=== PATIENT | male | born 1955 | race Caucasian/White ===

== ENCOUNTER 2016-12-22 06:59 | Day surgery (SDC) | payer BC ==
[2016-12-21 11:10] VITALS: BMI 19.1
[2016-12-22] MEDS ORDERED: PROPOFOL 40 ML ONE (07:57)
[2016-12-22] MEDS ORDERED: LIDOCAINE HCL/PF 2% SDV 5ML VIAL ONE (07:57)
[2016-12-22 08:38] VITALS: TEMP 97.7
[2016-12-22 11:17] VITALS: BP 121/82; PULSE 65
--- NOTE | 2016-12-25 12:06 | PATH ---
Surgical Pathology Report Patient Name: SULMA NGUYỄN JR [facility]. Rec. #: [id number] /Age/Gender: 1955 (Age: 61) / M Account: [id number] Location: U-ENDOSCOPY Taken: 12/22/2016 Received: 12/22/2016 Reported: 12/25/2016 Physicians: Cuate Farnsworth M.D. Specimen(s) Received A: BX ILEUM B: BX ANASTOMOSIS C: BX TRANSVERSE COLON D: SPLENIC FLEXURE BIOPSY E: BX SIGMOID F: BX RECTUM Clinical History Crohn's surveillance Crohn's colitis, ileitis Final Diagnosis A. ILEUM, BIOPSY: ILEUM MUCOSA WITH FOCALLY ACTIVE CHRONIC ILEITIS WITH FOCAL MILD CRYPT ALTERATION. NO EVIDENCE OF GRANULOMATA OR DYSPLASIA. B. ANASTOMOSIS SITE, BIOPSY: COLONIC MUCOSA WITH MILD ARCHITECTURAL DISARRAY AND FOCAL REACTIVE LYMPHOID AGGREGATE CONSISTENT WITH ANASTOMOSIS SITE. NO EVIDENCE OF GRANULOMATA, DYSPLASIA/ADENOMA OR CARCINOMA. C. COLON, TRANSVERSE, BIOPSY: COLONIC MUCOSA WITH MILD CRYPT ALTERATION. NO EVIDENCE OF ACTIVE INFLAMMATION, GRANULOMATA WITH DYSPLASIA. D. COLON, SPLENIC FLEXURE, BIOPSY: COLONIC MUCOSA WITH FOCALLY ACTIVE MILD CHRONIC COLITIS WITH FOCAL MILD CRYPT ALTERATION. NO EVIDENCE OF GRANULOMATA OR DYSPLASIA. E. COLON, SIGMOID, BIOPSY: COLONIC MUCOSA WITH FOCALLY ACTIVE MILD CHRONIC COLITIS WITH FOCAL MILD CRYPT ALTERATION. NO EVIDENCE OF GRANULOMATA OR DYSPLASIA F. RECTUM, BIOPSY: COLONIC MUCOSA WITH FOCALLY MINIMALLY ACTIVE MILD CHRONIC PROCTITIS WITH FOCAL MILD CRYPT ALTERATION. NO EVIDENCE OF GRANULOMATA OR DYSPLASIA. Comment: History of Crohn's disease noted. The histologic findings are compatible with idiopathic bowel disease. Electronically Signed Sukhjinder Vee M.D. Gross Description A. The specimen is received in formalin labeled biopsy ileum are three fragments of dacosta-pink tissue ranging in size from 0.1 0.3 cm in greatest dimension. Entirely submitted in one cassette. B. The specimen is received in formalin labeled biopsy anastomosis are multiple fragments of dacosta-pink tissue ranging in size from 0.1 0.2 cm in greatest dimension. Entirely submitted in one cassette. C. The specimen is received in formalin labeled biopsy transverse colon is a fragment of dacosta-pink tissue measuring 0.3 cm. in greatest dimension. Entirely submitted in one cassettes. D. The specimen is received in formalin labeled biopsy sigmoid are four fragments of dacosta-pink tissue ranging in size from 0.2 0.4 cm in greatest dimension. Entirely submitted in one cassettes. E. The specimen is received in formalin labeled biopsy rectum are four fragments of dacosta-pink tissue ranging in size from 0.1 0.2 cm in greatest dimension. (AF) [facility]/12/22/2016
== END 2016-12-22 09:30 | disposition home or self-care (01) ==
LOC: JASU-ENDO 06:59
PROVIDERS: ATTEND Internal Medicine Gastroenterology
PROC: 0DBB8ZX Excision of Ileum, Via Natural or Artificial Opening Endoscopic, Diagnostic (ICD-10-PCS; principal; 2016-12-22 08:00)
DX: Z12.11 Encounter for screening for malignant neoplasm of colon (principal); K50.10 Crohn's disease of large intestine without complications; Z98.0 Intestinal bypass and anastomosis status; K56.69 Other intestinal obstruction; K63.3 Ulcer of intestine
CPT/HCPCS: 88305-TC

== ENCOUNTER 2017-12-28 07:17 | Day surgery (SDC) | payer BC ==
[2017-12-27 09:49] VITALS: BMI 18.7
[2017-12-28] MEDS ORDERED: LIDOCAINE HCL/PF 2% SDV 5ML VIAL ONE (07:58)
[2017-12-28] MEDS ORDERED: PROPOFOL 20 ML ONE ×4 (07:59)
[2017-12-28 08:44] VITALS: TEMP 97.8
[2017-12-28 10:57] VITALS: BP 121/65; PULSE 56
--- NOTE | 2017-12-31 10:47 | PATH ---
Surgical Pathology Report Patient Name: SULMA NGUYỄN JR [facility]. Rec. #: [id number] /Age/Gender: 1955 (Age: 62) / M Account: [id number] Location: ASU-ENDOSCOPY Taken: 12/28/2017 Received: 12/28/2017 Reported: 12/31/2017 Physicians: Cuate Farnsworth M.D. Specimen(s) Received A: BX TERMINAL ILEUM B: BX ANASTOMOSIS C: BX TRANSVERSE COLON D: BX DESCENDING COLON E: BX SIGMOID F: BX RECTUM Clinical History Preoperative diagnosis: Crohn's disease surveillance Postoperative diagnosis: Crohn's ileitis with stricture Final Diagnosis A. TERMINAL ILEUM, BIOPSY: SMALL INTESTINAL MUCOSA WITH NONSPECIFIC ACTIVE INFLAMMATION. NO ARCHITECTURAL DISTORTION, GRANULOMA, OR DYSPLASIA IDENTIFIED. B. COLON, ANASTOMOSIS, BIOPSY: COLONIC AND SMALL INTESTINAL MUCOSA WITH HYPERPLASIA OF MUCOSA ASSOCIATED LYMPHOID TISSUE. NO ACTIVE INFLAMMATION, ARCHITECTURAL DISTORTION, GRANULOMAS, OR DYSPLASIA IDENTIFIED. C. COLON, TRANSVERSE, BIOPSY: COLONIC MUCOSA WITH NO PATHOLOGIC CHANGES. NO ACTIVE COLITIS, ARCHITECTURAL DISTORTION, GRANULOMATA, OR DYSPLASIA IDENTIFIED. NO MICROSCOPIC COLITIS IDENTIFIED (NO LYMPHOCYTIC OR COLLAGENOUS COLITIS IDENTIFIED). D. COLON, DESCENDING, BIOPSY: COLONIC MUCOSA WITH NO PATHOLOGIC CHANGES. NO ACTIVE COLITIS, ARCHITECTURAL DISTORTION, GRANULOMATA, OR DYSPLASIA IDENTIFIED. NO MICROSCOPIC COLITIS IDENTIFIED (NO LYMPHOCYTIC OR COLLAGENOUS COLITIS IDENTIFIED). E. COLON, SIGMOID, BIOPSY: COLONIC MUCOSA WITH MILD HYPERPLASTIC CHANGES. NO ACTIVE COLITIS, CRYPT ARCHITECTURAL DISTORTION, GRANULOMATA, OR DYSPLASIA IDENTIFIED. NO MICROSCOPIC COLITIS IDENTIFIED (NO LYMPHOCYTIC OR COLLAGENOUS COLITIS IDENTIFIED). F. COLON, RECTUM, BIOPSY: COLONIC MUCOSA WITH MILD HYPERPLASTIC CHANGES. NO ACTIVE COLITIS, CRYPT ARCHITECTURAL DISTORTION, GRANULOMATA, OR DYSPLASIA IDENTIFIED. NO MICROSCOPIC COLITIS IDENTIFIED (NO LYMPHOCYTIC OR COLLAGENOUS COLITIS IDENTIFIED). Electronically Signed Jeremie Cheney M.D. Gross Description A. Received in formalin, labeled "biopsy terminal ileum" are 3 dacosta, irregular portions of soft tissue ranging from 0.2-0.3 cm. in greatest dimension. The specimens are submitted in toto in one cassette. B. Received in formalin, labeled "biopsy anastomosis" are 4 dacosta, irregular portions of soft tissue ranging from 0.2-0.4 cm. in greatest dimension. The specimens are submitted in toto in one cassette. C. Received in formalin, labeled "biopsy transverse colon" are 5 dacosta, irregular portions of soft tissue ranging from 0.2-0.4 cm. in greatest dimension. The specimens are submitted in toto in one cassette. D. Received in formalin, labeled "biopsy descending colon" are 4 dacosta, irregular portions of soft tissue ranging from 0.2-0.4 cm. in greatest dimension. The specimens are submitted in toto in one cassette. E. Received in formalin, labeled "biopsy sigmoid colon" are 2 dacosta, irregular portions of soft tissue averaging 0.3 cm. in greatest dimension. The specimens are submitted in toto in one cassette. F. Received in formalin, labeled "biopsy rectum" are 5 dacosta, irregular portions of soft tissue ranging from 0.2-0.4 cm. in greatest dimension. The specimens are submitted in toto in one cassette. 12/28/2017 [facility]12/28/2017
== END 2017-12-28 10:10 | disposition home or self-care (01) ==
LOC: JASU-ENDO 07:17
PROVIDERS: ATTEND Internal Medicine Gastroenterology
PROC: 0DBB8ZX Excision of Ileum, Via Natural or Artificial Opening Endoscopic, Diagnostic (ICD-10-PCS; principal; 2017-12-28 08:00)
DX: Z12.11 Encounter for screening for malignant neoplasm of colon (principal); K50.90 Crohn's disease, unspecified, without complications
CPT/HCPCS: 88305-TC

== ENCOUNTER 2019-01-10 09:33 | Day surgery (SDC) | payer BC ==
[2019-01-09 12:43] VITALS: BMI 18.0
[2019-01-10 11:31] VITALS: TEMP 97.1
[2019-01-10 12:18] VITALS: BP 122/58; PULSE 62
--- NOTE | 2019-01-13 16:37 | PATH ---
Surgical Pathology Report Patient Name: SULMA NGUYỄN JR [facility]. Rec. #: [id number] /Age/Gender: 1955 (Age: 63) / M Account: [id number] Location: [facility]-ENDOSCOPY Taken: 01/10/2019 Received: 01/10/2019 Reported: 01/13/2019 Physicians: Cuate Farnsworth M.D. Specimen(s) Received A: ANTRAL COLONIC ANASTOMOSIS B: RIGHT COLON C: PROXIMAL TRANSVERSE COLON D: TRANSVERSE COLON E: DESCENDING COLON F: SIGMOID G: RECTUM Clinical History Crohn's Postoperative diagnosis: Polyp active ileitis, anastomotic stricture Final Diagnosis A. ANTRAL COLONIC ANASTOMOSIS, BIOPSY: COLONIC MUCOSA WITH EDEMA, EROSION, AND ACTIVE CHRONIC INFLAMMATION. B. RIGHT COLON, BIOPSY: COLONIC MUCOSA WITH NO SIGNIFICANT PATHOLOGIC CHANGES. SEE COMMENT. C. PROXIMAL TRANSVERSE COLON POLYP, POLYPECTOMY: TUBULAR ADENOMA. D. TRANSVERSE COLON, BIOPSY: COLONIC MUCOSA WITH REACTIVE LYMPHOID AGGREGATE IN THE LAMINA PROPRIA. E. DESCENDING COLON, BIOPSY: COLONIC MUCOSA WITH NO SIGNIFICANT PATHOLOGIC CHANGES. SEE COMMENT. F. DESCENDING COLON, BIOPSY: COLONIC MUCOSA WITH NO SIGNIFICANT PATHOLOGIC CHANGES. SEE COMMENT. G. RECTUM, BIOPSY: COLONIC MUCOSA WITH NO SIGNIFICANT PATHOLOGIC CHANGES. SEE COMMENT. COMMENT: NO HISTOLOGIC EVIDENCE OF ACTIVE COLITIS. NEGATIVE FOR GRANULOMATOUS INFLAMMATION. NEGATIVE FOR DYSPLASIA. Electronically Signed Kaz Zacarias M.D. Gross Description A. Received in formalin, labeled "biopsy antral colonic anastomosis" are 2 dacosta, irregular portions of soft tissue measuring 0.2 and 0.3 cm. in greatest dimension. The specimens are submitted in toto in one cassette. B. Received in formalin, labeled "biopsy right colon" are 4 dacosta, irregular portions of soft tissue ranging from 0.1-0.4 cm. in greatest dimension. The specimens are submitted in toto in one cassette. C. Received in formalin, labeled "biopsy proximal transverse colon polyp" is a dacosta, irregular portion of soft tissue measuring 0.3 cm. in greatest dimension. The specimen is submitted in toto in one cassette. D. Received in formalin, labeled "biopsy transverse colon" are 3 dacosta, irregular portions of soft tissue ranging from 0.2-0.5 cm. in greatest dimension. The specimens are submitted in toto in one cassette. E. Received in formalin, labeled "biopsy descending colon" are 3 dacosta, irregular portions of soft tissue ranging from 0.4-0.5 cm. in greatest dimension. The specimens are submitted in toto in one cassette. F. Received in formalin, labeled "biopsy sigmoid" are 4 dacosta, irregular portions of soft tissue averaging 0.3 cm. in greatest dimension. The specimens are submitted in toto in one cassette. G. Received in formalin, labeled "biopsy rectum" are 4 dacosta, irregular portions of soft tissue ranging from 0.1-0.8 cm. in greatest dimension. The specimens are submitted in toto in one cassette. 01/10/2019 [facility]/10/2019
== END 2019-01-10 12:25 | disposition home or self-care (01) ==
LOC: JASU-ENDO 09:33
PROVIDERS: ATTEND Internal Medicine Gastroenterology
PROC: 0DBL8ZX Excision of Transverse Colon, Via Natural or Artificial Opening Endoscopic, Diagnostic (ICD-10-PCS; 2019-01-10)
PROC: 0DBB8ZX Excision of Ileum, Via Natural or Artificial Opening Endoscopic, Diagnostic (ICD-10-PCS; principal; 2019-01-10 10:30)
DX: Z12.11 Encounter for screening for malignant neoplasm of colon (principal); K52.89 Other specified noninfective gastroenteritis and colitis; D12.3 Benign neoplasm of transverse colon; Z98.0 Intestinal bypass and anastomosis status
CPT/HCPCS: 88305-TC; 88342-TC

== ENCOUNTER 2020-04-19 07:48 | Day surgery (SDC) | payer BC ==
[2020-04-13 13:32] VITALS: BMI 15.3
[2020-04-19 10:00] VITALS: TEMP 97.1
[2020-04-19 10:45] VITALS: BP 110/60; PULSE 67
[2020-04-19 11:43] LABS: BASO % 0.6 % (0-2.0); EOS % 0.5 % (0-4.5); HEMATOCRIT 40.4 % (35.4-49); HEMOGLOBIN 13.9 GM/dL (11.7-16.9); LYMPH % 21.1 % (8-40); MCH 32.9 pg (25.7-33.7); MCHC 34.4 g/dl (32.0-35.9); MEAN CELL VOLUME 95.5 fl (80-96); MEAN PLT VOLUME 8.6 fl (7.5-11.1); MONO % 6.9 % (3.8-10.2); NEUT % 70.9 % (42.8-82.8); PLATELET COUNT 267 K/MM3 (134-434); RBC 4.23 M/mm3 (4.00-5.60); WHITE BLOOD COUNT 13.6 K/mm3 (4.0-10.0)
[2020-04-19 12:18] LABS: ALBUMIN 3.3 g/dl (3.4-5.0); BILIRUBIN,TOTAL 0.5 mg/dL (0.2-1); BLOOD UREA NITROGEN 9.2 mg/dL (7-18); CALCIUM 8.8 mg/dL (8.5-10.1); CREATININE 1.2 mg/dL (0.55-1.3); POTASSIUM 3.5 mmol/L (3.5-5.1); TOT PROT 6.9 g/dl (6.4-8.2)
--- NOTE | 2020-04-20 17:10 | PATH ---
Surgical Pathology Report Patient Name: SULMA NGUYỄN JR [facility]. Rec. #: [id number] /Age/Gender: 1955 (Age: 65) / M Account: [id number] Location: [facility] SURGICAL Taken: 04/17/2020 Received: 04/19/2020 Reported: 04/20/2020 Physicians: Cuate Farnsworth M.D. Specimen(s) Received A: ILEUM B: STRICTURE OF ANASTOMOSIS C: ANASTOMOSIS D: RT COLON E: TRANSVERSE COLON F: DESCENDING COLON G: SIGMOID H: RECTUM Clinical History Crohn's surveillance Postoperative diagnosis: Crohn's with stricture at anastomosis Final Diagnosis A. ILEUM, BIOPSY: PORTIONS OF SMALL INTESTINAL MUCOSA WITH MARKED ACUTE INFLAMMATION. SEPARATE ACUTE INFLAMMATORY EXUDATE, CONSISTENT WITH ULCER BASE. B. STRICTURE OF ANASTOMOSIS, BIOPSY: PORTIONS OF SMALL INTESTINAL AND COLONIC MUCOSA WITH MARKED ACUTE INFLAMMATION. SEPARATE ACUTE INFLAMMATORY EXUDATE, CONSISTENT WITH ULCER BASE. C. ANASTOMOSIS, BIOPSY: COLONIC MUCOSA WITH FOCAL MILD ACUTE INFLAMMATION, HEMORRHAGE AND REACTIVE LYMPHOID AGGREGATE THE LAMINA PROPRIA. D. RIGHT COLON, BIOPSY: COLONIC MUCOSA WITH FOCAL MILD ACUTE INFLAMMATION AND REACTIVE LYMPHOID AGGREGATE IN THE LAMINA PROPRIA. E. TRANSVERSE COLON, BIOPSY: COLONIC MUCOSA WITH FOCAL MILD ACUTE INFLAMMATION AND REACTIVE LYMPHOID AGGREGATE IN THE LAMINA PROPRIA. F. DESCENDING COLON, BIOPSY: COLONIC MUCOSA WITH NO SIGNIFICANT PATHOLOGIC CHANGE. NEGATIVE FOR ACTIVE COLITIS. G. SIGMOID, BIOPSY: COLONIC MUCOSA WITH FOCAL MILD ACUTE INFLAMMATION. H. RECTUM, BIOPSY: COLONIC MUCOSA WITH REACTIVE LYMPHOID AGGREGATE IN LAMINA PROPRIA. NEGATIVE FOR ACTIVE COLITIS. Comment: There is no dysplasia, granuloma, parasite or viral inclusions seen in the above specimens. Electronically Signed Kaz Zacarias M.D. Gross Description A. Received in formalin, labeled "biopsy ileum" are 7 dacosta, irregular portions of soft tissue ranging from 0.1-0.4 cm. in greatest dimension. The specimens are submitted in toto in one cassette. B. Received in formalin, labeled "biopsy stricture of anastomosis" are 5 dacosta, irregular portions of soft tissue ranging from 0.1-0.3 cm. in greatest dimension. The specimens are submitted in toto in one cassette. C. Received in formalin, labeled "biopsy anastomosis" are 5 dacosta, irregular portions of soft tissue ranging from 0.2-0.4 cm. in greatest dimension. The specimens are submitted in toto in one cassette. D. Received in formalin, labeled "biopsy right colon" are 2 dacosta, irregular portions of soft tissue averaging 0.4 cm. in greatest dimension. The specimens are submitted in toto in one cassette. E. Received in formalin, labeled "biopsy transverse" are 5 dacosta, irregular portions of soft tissue ranging from 0.2-0.5 cm. in greatest dimension. The specimens are submitted in toto in one cassette. F. Received in formalin, labeled "biopsy descending colon" is a dacosta, irregular portion of soft tissue measuring 0.2 cm. in greatest dimension. The specimen is submitted in toto in one cassette. G. Received in formalin, labeled "biopsy sigmoid" are 4 dacosta, irregular portions of soft tissue ranging from 0.2-0.6 cm. in greatest dimension. The specimens are submitted in toto in one cassette. H. Received in formalin, labeled "biopsy rectum" are 2 dacosta, irregular portions of soft tissue measuring 0.2 and 0.6 cm. in greatest dimension. The specimens are submitted in toto in one cassette. 04/19/2020 [facility]04/19/2020
== END 2020-04-19 11:07 | disposition home or self-care (01) ==
LOC: JASU-SURG 07:48
PROVIDERS: ATTEND Internal Medicine Gastroenterology
PROC: 0DBE8ZX Excision of Large Intestine, Via Natural or Artificial Opening Endoscopic, Diagnostic (ICD-10-PCS; 2020-04-19)
PROC: 0DBK8ZX Excision of Ascending Colon, Via Natural or Artificial Opening Endoscopic, Diagnostic (ICD-10-PCS; 2020-04-19)
PROC: 0DBB8ZX Excision of Ileum, Via Natural or Artificial Opening Endoscopic, Diagnostic (ICD-10-PCS; principal; 2020-04-19 09:00)
DX: Z12.11 Encounter for screening for malignant neoplasm of colon (principal); K50.10 Crohn's disease of large intestine without complications; K64.8 Other hemorrhoids; Z98.0 Intestinal bypass and anastomosis status; K62.4 Stenosis of anus and rectum
CPT/HCPCS: 36415; 80053; 85025; 86140; 88305-TC

== ENCOUNTER 2021-04-22 07:00 | Day surgery (SDC) | payer BC ==
[2021-04-20 15:57] VITALS: BMI 17.2
[2021-04-22 08:45] VITALS: TEMP 97.7
[2021-04-22 09:29] VITALS: BP 133/71; PULSE 75
[2021-04-22 10:11] LABS: CHLORIDE 111 mmol/L (98-107); SODIUM 143 mmol/L (136-145)
[2021-04-22 10:13] LABS: BASO % 0.5 % (0-2.0); EOS % 0.8 % (0-4.5); HEMATOCRIT 39.5 % (35.4-49); HEMOGLOBIN 13.3 GM/dL (11.7-16.9); LYMPH % 17.4 % (8-40); MCH 33.5 pg (25.7-33.7); MCHC 33.6 g/dl (32.0-35.9); MEAN CELL VOLUME 99.7 fl (80-96); MEAN PLT VOLUME 7.4 fl (7.5-11.1); MONO % 6.6 % (3.8-10.2); NEUT % 74.7 % (42.8-82.8); PLATELET COUNT 286 10^3/uL (134-434); RBC 3.96 M/mm3 (4.00-5.60); RDW 13.4 % (11.9-15.9); WHITE BLOOD COUNT 17.4 K/mm3 (4.0-10.0)
[2021-04-22 10:14] LABS: CALCIUM 8.7 mg/dL (8.5-10.1)
[2021-04-22 10:15] LABS: ALBUMIN 3.5 g/dl (3.4-5.0); ANION GAP 9 MMOL/L (8-16); BLOOD UREA NITROGEN 11.3 mg/dL (7-18); CO2 23 mmol/L (21-32); GLUCOSE,RANDOM 78 mg/dL (74-106)
[2021-04-22 10:17] LABS: CREATININE 1.2 mg/dL (0.55-1.3)
[2021-04-22 10:18] LABS: SGOT/AST 22 U/L (15-37); SGPT/ALT 31 U/L (13-61)
[2021-04-22 10:19] LABS: BILIRUBIN,TOTAL 0.5 mg/dL (0.2-1); TOT PROT 6.9 g/dl (6.4-8.2)
[2021-04-22 10:20] LABS: ALK PHOS 58 U/L (45-117)
[2021-04-23 08:06] LABS: CARCINOEMBRYONIC ANTIGEN 13.6 ng/mL (0.0-4.7)
== END 2021-04-22 09:40 | disposition home or self-care (01) ==
LOC: JASU-ENDO 07:00
PROVIDERS: ATTEND Internal Medicine Gastroenterology
PROC: 0DBL8ZX Excision of Transverse Colon, Via Natural or Artificial Opening Endoscopic, Diagnostic (ICD-10-PCS; 2021-04-22)
PROC: 0DBN8ZX Excision of Sigmoid Colon, Via Natural or Artificial Opening Endoscopic, Diagnostic (ICD-10-PCS; 2021-04-22)
PROC: 0DBB8ZX Excision of Ileum, Via Natural or Artificial Opening Endoscopic, Diagnostic (ICD-10-PCS; 2021-04-22)
PROC: 0DBM8ZX Excision of Descending Colon, Via Natural or Artificial Opening Endoscopic, Diagnostic (ICD-10-PCS; 2021-04-22)
PROC: 0DBK8ZX Excision of Ascending Colon, Via Natural or Artificial Opening Endoscopic, Diagnostic (ICD-10-PCS; principal; 2021-04-22 08:03)
DX: Z12.11 Encounter for screening for malignant neoplasm of colon (principal); K50.90 Crohn's disease, unspecified, without complications; K63.3 Ulcer of intestine; K64.8 Other hemorrhoids; Z98.0 Intestinal bypass and anastomosis status
CPT/HCPCS: 36415; 80053; 82378; 83516; 85025; 86140; 86255; 86671; 88305-TC

== ENCOUNTER 2024-01-15 09:48 | Observation (INO) | payer OTHER, BC ==
[2024-01-15] MEDS ORDERED: ONDANSETRON 4 MG/2 ML VIAL ONE (11:17)
[2024-01-15] MEDS ORDERED: ACETAMINOPHEN INJECTION 100 ML IVPB ONE (11:17)
[2024-01-15] MEDS ORDERED: FAMOTIDINE 10 MG/ML VIAL IVPB ONE (11:18)
[2024-01-15] MEDS ORDERED: FAMOTIDINE 20 MG/50 ML IVPB 20 MG/50 ML MG IVPB ONE (11:19)
[2024-01-15] MEDS: ACETAMINOPHEN 1000 MG/100 ML BAG IVPB ONE (11:19)
[2024-01-15] MEDS: FAMOTIDINE 20 MG/50 ML IVPB 20 MG/50 ML MG IVPB ONE (11:19)
[2024-01-15] MEDS: ONDANSETRON 4 MG/2 ML VIAL IVPUSH ONE (11:19)
[2024-01-15] MEDS: SODIUM CHLORIDE 0.9% 500 ML INFUS.BAG IV ONE (11:19)
[2024-01-15 11:30] LABS: HEMOGLOBIN 13.5 GM/dL (11.7-16.9); MCH 35.4 pg (25.7-33.7); MCHC 33.8 g/dl (32.0-35.9); MEAN CELL VOLUME 104.8 fl (80-96); MEAN PLT VOLUME 7.8 fl (7.5-11.1); PLATELET COUNT 324 10^3/uL (134-434); RBC 3.82 M/mm3 (4.00-5.60); RDW 13.7 % (11.9-15.9)
[2024-01-15 11:40] LABS: POTASSIUM 4.8 mmol/L (3.5-5.1)
[2024-01-15 11:42] LABS: ALBUMIN 4.5 g/dl (3.4-5.0); CALCIUM 10.3 mg/dL (8.5-10.1)
[2024-01-15 11:43] LABS: BLOOD UREA NITROGEN 24.5 mg/dL (7-18); MAGNESIUM 1.7 mg/dL (1.8-2.4)
[2024-01-15 11:46] LABS: CREATININE 2.3 mg/dL (0.55-1.3)
[2024-01-15 11:47] LABS: BILIRUBIN,TOTAL 0.5 mg/dL (0.2-1); TOT PROT 7.6 g/dl (6.4-8.2)
[2024-01-15 12:13] LABS: ANISOCYTOSIS 0; MACROCYTOSIS 2+
[2024-01-15] MEDS ORDERED: MAGNESIUM SULFATE IN WATER 2 GM/50 ML IVPB IVPB ONE (16:13)
[2024-01-15] MEDS: MAGNESIUM 2GM/50ML STERILE WATER IVPB IVPB ONE (16:13)
[2024-01-15] MEDS: SODIUM CHLORIDE 1,000 ML IV SCH (18:51)
[2024-01-15] MEDS: sulfaSALAzine 500 MG TABLET PO SCH (21:06)
[2024-01-15] MEDS ORDERED: PATIENT'S OWN MEDICATION (NON-FORMULARY) (Budesonide 3 MG Cap.Sr.24h) PO SCH (22:00)
[2024-01-16 02:50] VITALS: BMI 18.4
[2024-01-16 09:50] LABS: HEMATOCRIT 34.9 % (35.4-49); HEMOGLOBIN 12.2 GM/dL (11.7-16.9); MCH 36.5 pg (25.7-33.7); MCHC 34.9 g/dl (32.0-35.9); MEAN CELL VOLUME 104.5 fl (80-96); PLATELET COUNT 266 10^3/uL (134-434); RBC 3.34 M/mm3 (4.00-5.60); RDW 13.4 % (11.9-15.9); WHITE BLOOD COUNT 10.2 K/mm3 (4.0-10.0)
[2024-01-16 10:11] LABS: POTASSIUM 3.7 mmol/L (3.5-5.1)
[2024-01-16 10:18] LABS: ALBUMIN 3.9 g/dl (3.4-5.0); CREATININE 1.7 mg/dL (0.55-1.3)
[2024-01-16 10:19] LABS: BILIRUBIN,TOTAL 0.5 mg/dL (0.2-1); TOT PROT 6.6 g/dl (6.4-8.2)
[2024-01-16 10:21] LABS: CALCIUM 8.9 mg/dL (8.5-10.1); MAGNESIUM 1.8 mg/dL (1.8-2.4)
[2024-01-16 10:22] LABS: PHOSPHOROUS 2.9 mg/dL (2.5-4.9)
[2024-01-16 10:55] LABS: ERYTHROCYTE SEDIMENTATION RATE 12 mm/hr (0-20)
[2024-01-17 08:10] LABS: POTASSIUM 3.6 mmol/L (3.5-5.1)
[2024-01-17 08:11] LABS: BASO % 0.2 % (0-2.0); EOS % 0.6 % (0-4.5); HEMATOCRIT 32.8 % (35.4-49); HEMOGLOBIN 11.7 GM/dL (11.7-16.9); LYMPH % 11.8 % (8-40); MCH 36.3 pg (25.7-33.7); MCHC 35.6 g/dl (32.0-35.9); MEAN CELL VOLUME 101.9 fl (80-96); MEAN PLT VOLUME 8.3 fl (7.5-11.1); NEUT % 76.4 % (42.8-82.8); PLATELET COUNT 245 10^3/uL (134-434); RBC 3.22 M/mm3 (4.00-5.60); RDW 13.4 % (11.9-15.9); WHITE BLOOD COUNT 8.6 K/mm3 (4.0-10.0)
[2024-01-17 08:25] LABS: ALBUMIN 3.4 g/dl (3.4-5.0); CALCIUM 8.6 mg/dL (8.5-10.1); MAGNESIUM 1.4 mg/dL (1.8-2.4)
[2024-01-17 08:29] LABS: CREATININE 1.3 mg/dL (0.55-1.3)
[2024-01-17 08:30] LABS: BILIRUBIN,TOTAL 0.5 mg/dL (0.2-1)
[2024-01-17] MEDS: SODIUM CHLORIDE 1,000 ML IV SCH (09:05)
[2024-01-17] MEDS: MAGNESIUM SULF 50% (8.12 MEQ/2 ML-1 GM VIAL) IVPB ONE (10:21)
[2024-01-17] MEDS: LISINOPRIL 10 MG TABLET PO SCH (10:22)
[2024-01-17] MEDS: predniSONE 10 MG TABLET (UD) PO SCH (15:01)
[2024-01-18 02:29] VITALS: RESP 18
[2024-01-18 09:45] VITALS: BP 144/73; PULSE 96; TEMP 98.1
[2024-01-18 09:55] LABS: HEMATOCRIT 33.3 % (35.4-49); HEMOGLOBIN 11.8 GM/dL (11.7-16.9); MCHC 35.2 g/dl (32.0-35.9); MEAN PLT VOLUME 8.2 fl (7.5-11.1); PLATELET COUNT 259 10^3/uL (134-434); RBC 3.27 M/mm3 (4.00-5.60); RDW 13.5 % (11.9-15.9); WHITE BLOOD COUNT 8.4 K/mm3 (4.0-10.0)
[2024-01-18 10:10] LABS: POTASSIUM 3.5 mmol/L (3.5-5.1)
[2024-01-18 10:15] LABS: CALCIUM 8.7 mg/dL (8.5-10.1)
[2024-01-18 10:16] LABS: ALBUMIN 3.4 g/dl (3.4-5.0); BLOOD UREA NITROGEN 8.6 mg/dL (7-18); MAGNESIUM 1.9 mg/dL (1.8-2.4)
[2024-01-18 10:19] LABS: BILIRUBIN,TOTAL 0.6 mg/dL (0.2-1); CREATININE 1.2 mg/dL (0.55-1.3)
[2024-01-18 10:20] LABS: TOT PROT 6.4 g/dl (6.4-8.2)
[2024-01-18 10:42] LABS: ANISOCYTOSIS 2+; MACROCYTOSIS 2+
== END 2024-01-18 10:17 | disposition home or self-care (01) ==
LOC: JER 09:48 → JERBED 15:28 → J8W 23:13
PROVIDERS: ADMIT Internal Medicine; ATTEND Nurse Practitioner Family
PROC: 3E033GC Introduction of Other Therapeutic Substance into Peripheral Vein, Percutaneous Approach (ICD-10-PCS; principal; 2024-01-15)
PROC: 3E033NZ Introduction of Analgesics, Hypnotics, Sedatives into Peripheral Vein, Percutaneous Approach (ICD-10-PCS; 2024-01-15)
PROC: 3E0337Z Introduction of Electrolytic and Water Balance Substance into Peripheral Vein, Percutaneous Approach (ICD-10-PCS; 2024-01-15)
DX: N17.9 Acute kidney failure, unspecified (principal); E83.119 Hemochromatosis, unspecified; E86.0 Dehydration; R19.7 Diarrhea, unspecified; E83.42 Hypomagnesemia; K50.90 Crohn's disease, unspecified, without complications; R11.2 Nausea with vomiting, unspecified; Z88.8 Allergy status to other drugs, medicaments and biological substances
CPT/HCPCS: 36415; 74176-TC; 80053; 82272; 83690; 83735; 84100; 85025; 85027; 85651; 86140; 87045; 87046; 87205; 87209; 87324; 87449; 93005; 93010; 96361; 96365; 96375; 96376; 97116-GP; 97161-GP; 99285-25; G0378; J0131

== ENCOUNTER 2024-07-13 17:28 | Inpatient (IN) | payer OTHER, BC ==
[2024-07-13 18:37] LABS: VENOUS BASE EXCESS -8.7 mmol/L (-2-2); VENOUS O2 SATURATION 18.7 % (70-80); VENOUS PCO2 23.9 mmHg (38-52); VENOUS PH 7.391 (7.310-7.410)
[2024-07-13 18:39] LABS: BASO % 0.2 % (0-2.0); EOS % 0.2 % (0-4.5); HEMATOCRIT 28.7 % (35.4-49); HEMOGLOBIN 9.8 GM/dL (11.7-16.9); LYMPH % 9.5 % (8-40); MCH 36.8 pg (25.7-33.7); MCHC 34.1 g/dl (32.0-35.9); MEAN CELL VOLUME 107.9 fl (80-96); MONO % 4.8 % (3.8-10.2); NEUT % 85.3 % (42.8-82.8); PLATELET COUNT 230 10^3/uL (134-434); RBC 2.66 M/mm3 (4.00-5.60); RDW 14.5 % (11.9-15.9); WHITE BLOOD COUNT 16.7 K/mm3 (4.0-10.0)
[2024-07-13 18:46] LABS: INR 1.05 (0.83-1.09); PROTHROMBIN TIME (PATIENT) 12.1 SEC (9.7-13.0)
[2024-07-13] MEDS: LACTATED RINGERS SOLUTION 1000 ML INFUS.BAG IV ONE ×3 (18:46→22:41)
[2024-07-13 18:48] LABS: POTASSIUM 4.2 mmol/L (3.5-5.1)
[2024-07-13] MEDS ORDERED: VANCOMYCIN 1 GRAM (PRE-DOCKED) 1,000 MG/250 ML BAG IVPB ONE (18:48)
[2024-07-13 18:50] LABS: ALBUMIN 4.1 g/dl (3.4-5.0); BLOOD UREA NITROGEN 47.9 mg/dL (7-18)
[2024-07-13 18:54] LABS: CREATININE 3.1 mg/dL (0.55-1.3)
[2024-07-13 18:55] LABS: BILIRUBIN,TOTAL 0.8 mg/dL (0.2-1)
[2024-07-13 18:56] LABS: TOT PROT 6.9 g/dl (6.4-8.2)
[2024-07-13 19:03] LABS: ANISOCYTOSIS 1+; MACROCYTOSIS 0; TEAR DROP CELLS 1+
[2024-07-13] MEDS: VANCOMYCIN 1,000 MG in DEXTROSE 5%-WATER - 250 ML IVPB ONE (19:07)
[2024-07-13 19:08] LABS: LACTIC ACID 4.8 mmol/L (0.4-2.0)
[2024-07-13] MEDS ORDERED: PIPERACILLIN/TAZOB 4.5 GM 4.5 GM/100 ML BAG IVPB ONE (19:56)
[2024-07-13] MEDS: PIPERACILLIN/TAZOB 4.5 GM 4.5 GM in DEXTROSE 5%-WATER 100 ML IVPB ONE (20:03)
[2024-07-13 20:56] LABS: PH,URINE 5.5 (5.0-8.0); URINE APPEARANCE CLEAR; URINE BILIRUBIN NEGATIVE (NEGATIVE); URINE COLOR YELLOW; URINE GLUCOSE (UA) TRACE (NEGATIVE); URINE KETONE TRACE (NEGATIVE); URINE LEUK ESTERASE NEGATIVE (NEGATIVE); URINE NITRITE NEGATIVE (NEGATIVE); URINE PROTEIN TRACE (NEGATIVE); URINE UROBILINOGEN 0.2 mg/dL (0.2-1.0)
[2024-07-13] MEDS ORDERED: ONDANSETRON 4 MG/2 ML VIAL ONE (21:54)
[2024-07-13] MEDS: ONDANSETRON 4 MG/2 ML VIAL IVPUSH ONE (21:57)
[2024-07-13 22:58] LABS: LACTIC ACID 2.3 mmol/L (0.4-2.0)
[2024-07-14] MEDS ORDERED: ONDANSETRON 4 MG/2 ML VIAL IVPUSH PRN (02:41)
[2024-07-14] MEDS ORDERED: DIPHENOXYLATE 2.5/ATROPINE.025 1 COMBO TABLET PO PRN (03:00)
[2024-07-14] MEDS: POTASSIUM CHLORIDE TABS 20 MEQ TABLET.ER (FP) PO SCH (05:52)
[2024-07-14] MEDS: SODIUM CHLORIDE 1,000 ML IV SCH (05:52)
[2024-07-14] MEDS: HEPARIN NA (PORCINE) 5,000 UNITS/ML 1ML VIAL SQ SCH (05:52)
[2024-07-14 08:05] LABS: HEMATOCRIT 21.6 % (35.4-49); HEMOGLOBIN 7.6 GM/dL (11.7-16.9); MCH 37.3 pg (25.7-33.7); MEAN CELL VOLUME 106.4 fl (80-96); MEAN PLT VOLUME 7.8 fl (7.5-11.1); PLATELET COUNT 173 10^3/uL (134-434); RBC 2.03 M/mm3 (4.00-5.60); RDW 14.4 % (11.9-15.9); WHITE BLOOD COUNT 10.4 K/mm3 (4.0-10.0)
[2024-07-14 08:16] LABS: CHLORIDE 108 mmol/L (98-107); POTASSIUM 3.3 mmol/L (3.5-5.1); SODIUM 137 mmol/L (136-145)
[2024-07-14 08:22] LABS: ANION GAP 9 mmol/L (4-13); CALCIUM 9.4 mg/dL (8.5-10.1); CO2 20 mmol/L (21-32); GLUCOSE,RANDOM 83 mg/dL (74-106)
[2024-07-14 08:23] LABS: ALBUMIN 3.4 g/dl (3.4-5.0); BLOOD UREA NITROGEN 35.2 mg/dL (7-18); MAGNESIUM 1.2 mg/dL (1.8-2.4)
[2024-07-14 08:25] LABS: PHOSPHOROUS 2.8 mg/dL (2.5-4.9)
[2024-07-14 08:26] LABS: CREATININE 2.3 mg/dL (0.55-1.3); SGOT/AST 36 U/L (15-37); SGPT/ALT 39 U/L (13-61)
[2024-07-14 08:27] LABS: BILIRUBIN,TOTAL 0.8 mg/dL (0.2-1); TOT PROT 5.4 g/dl (6.4-8.2)
[2024-07-14 08:28] LABS: ALK PHOS 116 U/L (45-117)
[2024-07-14] MEDS: LISINOPRIL 10 MG TABLET PO SCH (09:41)
[2024-07-14] MEDS: CEFTRIAXONE 1 GM in DEXTROSE 5%-WATER - 50 ML IVPB SCH (09:41)
[2024-07-14] MEDS: predniSONE 5 MG TABLET (UD) PO SCH (09:41)
[2024-07-14 11:11] LABS: IRON SERUM 77 ug/dL (50-175)
[2024-07-14 11:13] LABS: TOTAL IRON BINDING CAPACITY 285 ug/dL (250-450)
[2024-07-14] MEDS: POTASSIUM CHLORIDE ORAL LIQUID 20 MEQ/15 ML PO SCH (11:44)
[2024-07-14] MEDS: MAGNESIUM SULFATE IN WATER 2 GM/50 ML IVPB IVPB ONE (13:15)
[2024-07-14 15:50] LABS: HEMATOCRIT 22.6 % (35.4-49); HEMOGLOBIN 7.5 GM/dL (11.7-16.9); MCH 35.7 pg (25.7-33.7); MCHC 33.1 g/dl (32.0-35.9); MEAN CELL VOLUME 107.8 fl (80-96); MEAN PLT VOLUME 8.1 fl (7.5-11.1); PLATELET COUNT 195 10^3/uL (134-434); RDW 14.5 % (11.9-15.9); WHITE BLOOD COUNT 14.6 K/mm3 (4.0-10.0)
[2024-07-14 16:44] LABS: ANISOCYTOSIS 2+; MACROCYTOSIS 0
[2024-07-15 08:30] LABS: HEMATOCRIT 22.1 % (35.4-49); HEMOGLOBIN 7.4 GM/dL (11.7-16.9); MCH 36.7 pg (25.7-33.7); MCHC 33.6 g/dl (32.0-35.9); MEAN CELL VOLUME 109.3 fl (80-96); PLATELET COUNT 193 10^3/uL (134-434); RBC 2.02 M/mm3 (4.00-5.60); RDW 14.4 % (11.9-15.9); WHITE BLOOD COUNT 14.3 K/mm3 (4.0-10.0)
[2024-07-15 08:57] LABS: CALCIUM 8.5 mg/dL (8.5-10.1)
[2024-07-15 08:58] LABS: ALBUMIN 3.3 g/dl (3.4-5.0); BLOOD UREA NITROGEN 22.7 mg/dL (7-18); MAGNESIUM 1.7 mg/dL (1.8-2.4)
[2024-07-15 09:01] LABS: CREATININE 2.2 mg/dL (0.55-1.3); PHOSPHOROUS 2.7 mg/dL (2.5-4.9)
[2024-07-15 09:02] LABS: BILIRUBIN,TOTAL 0.8 mg/dL (0.2-1); TOT PROT 5.8 g/dl (6.4-8.2)
[2024-07-15] MEDS: CEFTRIAXONE 1 GM in DEXTROSE 5%-WATER - 50 ML IVPB SCH (09:56)
[2024-07-15 09:57] LABS: ANISOCYTOSIS 1+; MACROCYTOSIS 1+
[2024-07-15] MEDS: MAGNESIUM SULFATE IN WATER 2 GM/50 ML IVPB IVPB ONE (12:40)
[2024-07-15] MEDS: PANTOPRAZOLE 40 MG TABLET PO ONE (17:48)
[2024-07-16] MEDS: AMINO ACIDS/PROTEIN HYDROLYS 30 ML LIQUID.PKT PO SCH (08:59)
[2024-07-16] MEDS: MULTIVITAMINS (DAILY MVI) TABLET (FP) PO SCH (09:07)
[2024-07-16 10:17] LABS: HEMATOCRIT 19.7 % (35.4-49); MCH 36.4 pg (25.7-33.7); MCHC 33.2 g/dl (32.0-35.9); MEAN CELL VOLUME 109.7 fl (80-96); MEAN PLT VOLUME 8.2 fl (7.5-11.1); PLATELET COUNT 189 10^3/uL (134-434); RBC 1.79 M/mm3 (4.00-5.60); RDW 14.5 % (11.9-15.9)
[2024-07-16 10:27] LABS: WHITE BLOOD COUNT 11.1 K/mm3 (4.0-10.0)
[2024-07-16 10:35] LABS: HEMOGLOBIN 6.5 GM/dL (11.7-16.9)
[2024-07-16 10:42] LABS: POTASSIUM 3.6 mmol/L (3.5-5.1)
[2024-07-16 10:46] LABS: ALBUMIN 3.2 g/dl (3.4-5.0); CALCIUM 8.7 mg/dL (8.5-10.1)
[2024-07-16 10:47] LABS: BLOOD UREA NITROGEN 19.6 mg/dL (7-18)
[2024-07-16 10:49] LABS: CREATININE 1.9 mg/dL (0.55-1.3); MAGNESIUM 1.9 mg/dL (1.8-2.4)
[2024-07-16 10:51] LABS: TOT PROT 5.6 g/dl (6.4-8.2)
[2024-07-16 10:52] LABS: BILIRUBIN,TOTAL 0.4 mg/dL (0.2-1)
[2024-07-16 10:53] LABS: ANISOCYTOSIS 1+; MACROCYTOSIS 2+
[2024-07-16 13:10] LABS: HEMATOCRIT 19.4 % (35.4-49); MCH 37.1 pg (25.7-33.7); MCHC 34.7 g/dl (32.0-35.9); MEAN CELL VOLUME 106.8 fl (80-96); PLATELET COUNT 184 10^3/uL (134-434); RBC 1.81 M/mm3 (4.00-5.60); RDW 14.5 % (11.9-15.9); WHITE BLOOD COUNT 11.8 K/mm3 (4.0-10.0)
[2024-07-16 13:25] LABS: HEMOGLOBIN 6.7 GM/dL (11.7-16.9)
[2024-07-16] MEDS: PANTOPRAZOLE SODIUM 40 MG VIAL IVPUSH SCH (13:30)
[2024-07-16] MEDS: IRON SUCROSE INJECTION 100 MG in SODIUM CHLORIDE 95 ML IVPB ONE (16:57)
[2024-07-17 06:51] LABS: HEMATOCRIT 16.6 % (35.4-49); MCH 37.4 pg (25.7-33.7); MCHC 34.9 g/dl (32.0-35.9); MEAN PLT VOLUME 7.7 fl (7.5-11.1); PLATELET COUNT 183 10^3/uL (134-434); RBC 1.55 M/mm3 (4.00-5.60); RDW 14.5 % (11.9-15.9); WHITE BLOOD COUNT 9.9 K/mm3 (4.0-10.0)
[2024-07-17 07:12] LABS: HEMOGLOBIN 5.8 GM/dL (11.7-16.9); POTASSIUM 3.5 mmol/L (3.5-5.1)
[2024-07-17 07:19] LABS: ALBUMIN 2.8 g/dl (3.4-5.0); BLOOD UREA NITROGEN 16.2 mg/dL (7-18); MAGNESIUM 1.4 mg/dL (1.8-2.4)
[2024-07-17 07:22] LABS: CREATININE 1.8 mg/dL (0.55-1.3)
[2024-07-17 07:24] LABS: BILIRUBIN,TOTAL 0.3 mg/dL (0.2-1); TOT PROT 4.9 g/dl (6.4-8.2)
[2024-07-17 09:06] LABS: ANISOCYTOSIS 0; MACROCYTOSIS 1+
[2024-07-17] MEDS: PANTOPRAZOLE 40 MG TABLET PO SCH (09:15)
[2024-07-17] MEDS ORDERED: MAGNESIUM SULF 50% (8.12 MEQ/2 ML-1 GM VIAL) IVPB ONE (14:49)
[2024-07-17] MEDS: PEG 3350/NA SULF BICARB CL/KCL 4000 ML SOLN.RECON PO ONE (17:55)
[2024-07-17] MEDS: BISACODYL 5 MG TABLET.DR (FP) PO ONE (17:55)
[2024-07-17] MEDS: MAGNESIUM 2GM/50ML STERILE WATER IVPB IVPB ONE (18:13)
[2024-07-18] MEDS: PATIENT'S OWN MEDICATION (NON-FORMULARY) (Budesonide 3 MG Cap.Sr.24h) PO SCH (08:12)
[2024-07-18 11:15] LABS: HEMATOCRIT 35.4 % (35.4-49); HEMOGLOBIN 12.2 GM/dL (11.7-16.9); MCH 34.1 pg (25.7-33.7); MCHC 34.4 g/dl (32.0-35.9); MEAN CELL VOLUME 98.9 fl (80-96); MEAN PLT VOLUME 7.4 fl (7.5-11.1); PLATELET COUNT 191 10^3/uL (134-434); RBC 3.58 M/mm3 (4.00-5.60); RDW 17.9 % (11.9-15.9)
[2024-07-18 11:33] LABS: POTASSIUM 3.3 mmol/L (3.5-5.1)
[2024-07-18 11:37] LABS: BLOOD UREA NITROGEN 13.9 mg/dL (7-18)
[2024-07-18 11:39] LABS: CALCIUM 9.8 mg/dL (8.5-10.1)
[2024-07-18 11:40] LABS: CREATININE 1.9 mg/dL (0.55-1.3)
[2024-07-18 11:42] LABS: BILIRUBIN,TOTAL 1.3 mg/dL (0.2-1); TOT PROT 6.7 g/dl (6.4-8.2)
[2024-07-18 14:10] LABS: RETICULOCYTES 2.56 % (0.5-1.5)
[2024-07-18] MEDS: POTASSIUM CHLORIDE ORAL LIQUID 20 MEQ/15 ML PO ONE (15:44)
[2024-07-19 04:07] VITALS: RESP 18
[2024-07-19 08:34] LABS: HEMATOCRIT 28.5 % (35.4-49); MCHC 35.2 g/dl (32.0-35.9); MEAN CELL VOLUME 99.5 fl (80-96); MEAN PLT VOLUME 7.7 fl (7.5-11.1); PLATELET COUNT 151 10^3/uL (134-434); RBC 2.86 M/mm3 (4.00-5.60); RDW 17.6 % (11.9-15.9)
[2024-07-19 08:42] LABS: WHITE BLOOD COUNT 10.8 K/mm3 (4.0-10.0)
[2024-07-19 13:35] LABS: POTASSIUM 3.6 mmol/L (3.5-5.1)
[2024-07-19 13:36] LABS: BLOOD UREA NITROGEN 14.6 mg/dL (7-18); CALCIUM 8.9 mg/dL (8.5-10.1)
[2024-07-19 13:40] LABS: CREATININE 1.9 mg/dL (0.55-1.3)
[2024-07-19 14:18] VITALS: BMI 18.1
[2024-07-19] MEDS: SODIUM CHLORIDE 1,000 ML IV SCH (15:30)
[2024-07-19] MEDS: SODIUM CHLORIDE 0.9% 1000 ML INFUS.BAG IV SCH (15:37)
[2024-07-20 08:59] LABS: POTASSIUM 3.5 mmol/L (3.5-5.1)
[2024-07-20 09:00] LABS: CALCIUM 8.6 mg/dL (8.5-10.1)
[2024-07-20 09:01] LABS: BLOOD UREA NITROGEN 18.4 mg/dL (7-18)
[2024-07-20 09:04] LABS: CREATININE 1.6 mg/dL (0.55-1.3)
[2024-07-20 09:14] VITALS: BP 176/82; PULSE 76; TEMP 97.3
== END 2024-07-20 12:45 | disposition home or self-care (01) | DRG 388 ==
LOC: JER 17:28 → JERBED 19:24 → OBSVTOIN 07-14 02:30 → J7W 07-14 07:35
PROVIDERS: ADMIT Internal Medicine; ATTEND Internal Medicine
PROC: 30233N1 Transfusion of Nonautologous Red Blood Cells into Peripheral Vein, Percutaneous Approach (ICD-10-PCS; 2024-07-17)
PROC: 0DBK8ZX Excision of Ascending Colon, Via Natural or Artificial Opening Endoscopic, Diagnostic (ICD-10-PCS; 2024-07-18)
PROC: 0DBN8ZX Excision of Sigmoid Colon, Via Natural or Artificial Opening Endoscopic, Diagnostic (ICD-10-PCS; 2024-07-18)
PROC: 0DB68ZX Excision of Stomach, Via Natural or Artificial Opening Endoscopic, Diagnostic (ICD-10-PCS; 2024-07-18)
PROC: 0DBB8ZX Excision of Ileum, Via Natural or Artificial Opening Endoscopic, Diagnostic (ICD-10-PCS; principal; 2024-07-18 13:00)
DX: K56.7 Ileus, unspecified (principal); E43 Unspecified severe protein-calorie malnutrition; N17.9 Acute kidney failure, unspecified; K50.90 Crohn's disease, unspecified, without complications; Z68.1 Body mass index [BMI] 19.9 or less, adult; D62 Acute posthemorrhagic anemia; M87.059 Idiopathic aseptic necrosis of unspecified femur; I10 Essential (primary) hypertension; E11.9 Type 2 diabetes mellitus without complications; E83.119 Hemochromatosis, unspecified; E86.0 Dehydration; K63.5 Polyp of colon; K64.8 Other hemorrhoids
CPT/HCPCS: 0241U-QW; 36415; 36430; 71045-TC-FY; 72192-TC; 74019-TC-FY; 74176-TC; 76775-TC; 80048; 80053; 81003; 82272; 82550; 82607; 82728; 82746; 82803; 83540; 83550; 83605; 83735; 84100; 84484; 85025; 85027; 85045; 85610; 85730; 86850; 86900; 86901; 86922; 87040; 87086; 88305-TC; 93005; 93010; 99285-25; G0378; J1644; J1756; P9038; P9058

== ENCOUNTER 2024-10-04 17:53 | Inpatient (IN) | payer OTHER, BC ==
[2024-10-04 20:23] LABS: HEMATOCRIT 30.6 % (35.4-49); HEMOGLOBIN 10.2 GM/dL (11.7-16.9); MCH 35.8 pg (25.7-33.7); MCHC 33.4 g/dl (32.0-35.9); MEAN PLT VOLUME 8.1 fl (7.5-11.1); PLATELET COUNT 277 10^3/uL (134-434); RBC 2.86 M/mm3 (4.00-5.60); RDW 16.3 % (11.9-15.9); WHITE BLOOD COUNT 12.1 K/mm3 (4.0-10.0)
[2024-10-04 20:34] LABS: INR 1.19 (0.83-1.09); PROTHROMBIN TIME (PATIENT) 13.6 SEC (9.7-13.0)
[2024-10-04 20:36] LABS: ACTIVATED PTT 31.6 SECONDS (25.2-36.5)
[2024-10-04 20:42] LABS: CALCIUM 9.8 mg/dL (8.5-10.1)
[2024-10-04 20:43] LABS: ALBUMIN 3.7 g/dl (3.4-5.0)
[2024-10-04 20:46] LABS: CREATININE 2.7 mg/dL (0.55-1.3)
[2024-10-04 20:48] LABS: BILIRUBIN,TOTAL 0.9 mg/dL (0.2-1); TOT PROT 6.9 g/dl (6.4-8.2)
[2024-10-04] MEDS ORDERED: ONDANSETRON 4 MG/2 ML VIAL ONE (21:38)
[2024-10-04] MEDS: ONDANSETRON 4 MG/2 ML VIAL IVPUSH ONE (22:34)
[2024-10-04] MEDS: SODIUM CHLORIDE 1,000 ML IV STA (22:34)
[2024-10-04] MEDS ORDERED: PANTOPRAZOLE SODIUM 40 MG VIAL ONE (22:35)
[2024-10-04] MEDS: PANTOPRAZOLE SODIUM 40 MG VIAL IVPUSH ONE (22:38)
[2024-10-04 23:22] LABS: LACTIC ACID 2.7 mmol/L (0.4-2.0)
[2024-10-05] MEDS: SODIUM CHLORIDE 1,000 ML IV STA (03:02)
[2024-10-05] MEDS ORDERED: ONDANSETRON 4 MG/2 ML VIAL IVPUSH PRN (04:01)
[2024-10-05] MEDS ORDERED: DIPHENOXYLATE 2.5/ATROPINE.025 1 COMBO TABLET PO PRN (04:15)
[2024-10-05 06:57] LABS: HEMATOCRIT 26.7 % (35.4-49); HEMOGLOBIN 8.9 GM/dL (11.7-16.9); MCH 35.9 pg (25.7-33.7); MCHC 33.4 g/dl (32.0-35.9); MEAN CELL VOLUME 107.7 fl (80-96); PLATELET COUNT 183 10^3/uL (134-434); RBC 2.48 M/mm3 (4.00-5.60); RDW 15.9 % (11.9-15.9); WHITE BLOOD COUNT 12.3 K/mm3 (4.0-10.0)
[2024-10-05] MEDS: SODIUM CHLORIDE 1,000 ML IV SCH (07:03)
[2024-10-05 09:14] LABS: ANISOCYTOSIS 1+; MACROCYTOSIS 1+
[2024-10-05] MEDS ORDERED: UPADACITINIB 45 MG PO SCH (10:00)
[2024-10-05] MEDS ORDERED: PATIENT'S OWN MEDICATION (NON-FORMULARY) (Budesonide [Budesonide Er] 9 MG Tabdr...Er) PO SCH (10:00)
[2024-10-05 10:19] LABS: HEMATOCRIT 28.9 % (35.4-49); HEMOGLOBIN 9.8 GM/dL (11.7-16.9); MCH 36.4 pg (25.7-33.7); MEAN CELL VOLUME 106.9 fl (80-96); PLATELET COUNT 251 10^3/uL (134-434); RDW 16.3 % (11.9-15.9); WHITE BLOOD COUNT 9.4 K/mm3 (4.0-10.0)
[2024-10-05] MEDS: predniSONE 10 MG TABLET (UD) PO SCH (10:44)
[2024-10-05] MEDS: PANTOPRAZOLE SODIUM 40 MG VIAL IVPUSH SCH (10:44)
[2024-10-05] MEDS: LISINOPRIL 10 MG TABLET PO SCH (10:44)
[2024-10-05] MEDS: LACTATED RINGERS SOLUTION 1,000 ML/1,000 ML INFUS.BAG IV SCH ×2 (10:45→13:59)
[2024-10-05 11:11] LABS: EPI CELLS 20 /uL (0-25.1); HYALINE CASTS 13 /uL (0-3.1); PH,URINE 5.5 (5.0-8.0); URINE APPEARANCE CLOUDY; URINE BACTERIA 2 /uL (0-1359); URINE BILIRUBIN 2+ (NEGATIVE); URINE COLOR DK YELLOW; URINE GLUCOSE (UA) NEGATIVE (NEGATIVE); URINE KETONE 1+ (NEGATIVE); URINE LEUK ESTERASE NEGATIVE (NEGATIVE); URINE NITRITE NEGATIVE (NEGATIVE); URINE PROTEIN 2+ (NEGATIVE); URINE WBC 54 /uL (0-25.8)
[2024-10-05 11:30] LABS: POTASSIUM 3.6 mmol/L (3.5-5.1)
[2024-10-05 11:32] LABS: ALBUMIN 3.5 g/dl (3.4-5.0); CALCIUM 9.4 mg/dL (8.5-10.1)
[2024-10-05 11:33] LABS: BLOOD UREA NITROGEN 39.3 mg/dL (7-18); MAGNESIUM 1.5 mg/dL (1.8-2.4)
[2024-10-05 11:36] LABS: CREATININE 3.2 mg/dL (0.55-1.3); PHOSPHOROUS 3.3 mg/dL (2.5-4.9)
[2024-10-05 11:37] LABS: BILIRUBIN,TOTAL 0.7 mg/dL (0.2-1); TOT PROT 6.4 g/dl (6.4-8.2)
[2024-10-05 12:47] LABS: URINE RBC 45.5 /uL (0-23.9)
[2024-10-05] MEDS: SODIUM CHLORIDE 500 ML IV STA (15:26)
[2024-10-05 20:17] LABS: LACTIC ACID 2.9 mmol/L (0.4-2.0)
[2024-10-05] MEDS: LACTATED RINGERS SOLUTION 1000 ML INFUS.BAG IV ONE (22:46)
[2024-10-06 08:43] LABS: HEMATOCRIT 22.8 % (35.4-49); HEMOGLOBIN 7.5 GM/dL (11.7-16.9); MCH 34.9 pg (25.7-33.7); MEAN CELL VOLUME 105.5 fl (80-96); PLATELET COUNT 228 10^3/uL (134-434); RBC 2.16 M/mm3 (4.00-5.60)
[2024-10-06 09:06] LABS: POTASSIUM 4.1 mmol/L (3.5-5.1)
[2024-10-06 09:19] LABS: ALBUMIN 3.1 g/dl (3.4-5.0); BLOOD UREA NITROGEN 38.1 mg/dL (7-18); MAGNESIUM 1.3 mg/dL (1.8-2.4)
[2024-10-06 09:21] LABS: CALCIUM 8.6 mg/dL (8.5-10.1)
[2024-10-06 09:22] LABS: CREATININE 3.1 mg/dL (0.55-1.3)
[2024-10-06 09:24] LABS: TOT PROT 5.5 g/dl (6.4-8.2)
[2024-10-06 09:25] LABS: BILIRUBIN,TOTAL 0.6 mg/dL (0.2-1)
[2024-10-06 10:06] LABS: ANISOCYTOSIS 1+; MACROCYTOSIS 2+
[2024-10-06] MEDS: LACTATED RINGERS SOLUTION 1,000 ML/1,000 ML INFUS.BAG IV SCH (10:24)
[2024-10-06 14:42] VITALS: BMI 16.7
[2024-10-07] MEDS: LACTATED RINGERS SOLUTION 1,000 ML/1,000 ML INFUS.BAG IV SCH (01:11)
[2024-10-07 08:07] LABS: MCH 36.9 pg (25.7-33.7); MCHC 35.1 g/dl (32.0-35.9); MEAN CELL VOLUME 105.3 fl (80-96); MEAN PLT VOLUME 8.2 fl (7.5-11.1); PLATELET COUNT 191 10^3/uL (134-434); RBC 1.81 M/mm3 (4.00-5.60); RDW 16.2 % (11.9-15.9); WHITE BLOOD COUNT 12.6 K/mm3 (4.0-10.0)
[2024-10-07 08:19] LABS: HEMOGLOBIN 6.7 GM/dL (11.7-16.9)
[2024-10-07 08:22] LABS: POTASSIUM 4.1 mmol/L (3.5-5.1)
[2024-10-07 08:24] LABS: ALBUMIN 2.9 g/dl (3.4-5.0); CALCIUM 8.4 mg/dL (8.5-10.1)
[2024-10-07 08:25] LABS: BLOOD UREA NITROGEN 37.8 mg/dL (7-18); MAGNESIUM 1.1 mg/dL (1.8-2.4)
[2024-10-07 08:28] LABS: CREATININE 3.4 mg/dL (0.55-1.3)
[2024-10-07 08:29] LABS: BILIRUBIN,TOTAL 0.4 mg/dL (0.2-1); TOT PROT 5.1 g/dl (6.4-8.2)
[2024-10-07] MEDS: MAGNESIUM 1GM/D5W 100ML - 100 ML IVPB IVPB ONE (09:39)
[2024-10-07 10:02] LABS: ANISOCYTOSIS 1+; MACROCYTOSIS 2+
[2024-10-07 18:36] LABS: HEMOGLOBIN 9.1 GM/dL (11.7-16.9); LYMPH % 4.2 % (8-40); MCH 34.1 pg (25.7-33.7); MCHC 33.6 g/dl (32.0-35.9); MEAN CELL VOLUME 101.3 fl (80-96); MEAN PLT VOLUME 7.9 fl (7.5-11.1); MONO % 7.4 % (3.8-10.2); NEUT % 88.4 % (42.8-82.8); PLATELET COUNT 199 10^3/uL (134-434); RBC 2.67 M/mm3 (4.00-5.60); RDW 18.7 % (11.9-15.9); WHITE BLOOD COUNT 13.1 K/mm3 (4.0-10.0)
[2024-10-08 09:29] LABS: HEMATOCRIT 24.8 % (35.4-49); HEMOGLOBIN 8.8 GM/dL (11.7-16.9); MCH 35.4 pg (25.7-33.7); MCHC 35.3 g/dl (32.0-35.9); MEAN CELL VOLUME 100.1 fl (80-96); MEAN PLT VOLUME 7.9 fl (7.5-11.1); PLATELET COUNT 193 10^3/uL (134-434); RBC 2.48 M/mm3 (4.00-5.60); RDW 20.1 % (11.9-15.9); WHITE BLOOD COUNT 10.9 K/mm3 (4.0-10.0)
[2024-10-08 09:53] LABS: POTASSIUM 4.2 mmol/L (3.5-5.1)
[2024-10-08 10:12] LABS: ALBUMIN 3.2 g/dl (3.4-5.0); BLOOD UREA NITROGEN 31.4 mg/dL (7-18); CALCIUM 8.7 mg/dL (8.5-10.1); MAGNESIUM 1.6 mg/dL (1.8-2.4)
[2024-10-08 10:15] LABS: CREATININE 2.9 mg/dL (0.55-1.3); PHOSPHOROUS 3.7 mg/dL (2.5-4.9)
[2024-10-08 10:17] LABS: BILIRUBIN,TOTAL 1.2 mg/dL (0.2-1); TOT PROT 5.6 g/dl (6.4-8.2)
[2024-10-08 10:32] LABS: ANISOCYTOSIS 1+; MACROCYTOSIS 1+
[2024-10-08] MEDS: MAGNESIUM 1GM/D5W 100ML - 100 ML IVPB IVPB ONE (13:05)
[2024-10-09 07:10] VITALS: RESP 18
[2024-10-09 07:45] LABS: HEMATOCRIT 23.1 % (35.4-49); HEMOGLOBIN 8.1 GM/dL (11.7-16.9); MCH 35.2 pg (25.7-33.7); MCHC 34.8 g/dl (32.0-35.9); MEAN PLT VOLUME 7.5 fl (7.5-11.1); PLATELET COUNT 159 10^3/uL (134-434); RBC 2.29 M/mm3 (4.00-5.60); RDW 19.5 % (11.9-15.9); WHITE BLOOD COUNT 7.6 K/mm3 (4.0-10.0)
[2024-10-09 07:50] LABS: BLOOD UREA NITROGEN 29.9 mg/dL (7-18); CALCIUM 8.3 mg/dL (8.5-10.1); MAGNESIUM 1.8 mg/dL (1.8-2.4)
[2024-10-09 07:54] LABS: CREATININE 2.5 mg/dL (0.55-1.3)
[2024-10-09 07:56] LABS: BILIRUBIN,TOTAL 1.1 mg/dL (0.2-1)
[2024-10-09 09:21] LABS: ANISOCYTOSIS 1+; MACROCYTOSIS 2+
[2024-10-09 13:43] VITALS: BP 165/77; PULSE 101; TEMP 97.7
[2024-10-10] MEDS ORDERED: MULTIVITAMINS THER W-MINERALS COMBO TABLET (FP) PO SCH (10:00)
== END 2024-10-09 16:41 | disposition home or self-care (01) | DRG 385 ==
LOC: JER 17:53 → JERBED 22:16 → J7W 23:45
PROVIDERS: ADMIT Internal Medicine; ATTEND Internal Medicine
DX: K50.012 Crohn's disease of small intestine with intestinal obstruction (principal); E43 Unspecified severe protein-calorie malnutrition; Z68.1 Body mass index [BMI] 19.9 or less, adult; N17.9 Acute kidney failure, unspecified; E87.20 Acidosis, unspecified; R65.10 Systemic inflammatory response syndrome (SIRS) of non-infectious origin without acute organ dysfunction; E86.0 Dehydration; R00.0 Tachycardia, unspecified; D72.829 Elevated white blood cell count, unspecified; K76.0 Fatty (change of) liver, not elsewhere classified; D64.9 Anemia, unspecified; R11.2 Nausea with vomiting, unspecified; I12.9 Hypertensive chronic kidney disease with stage 1 through stage 4 chronic kidney disease, or unspecified chronic kidney disease; N18.9 Chronic kidney disease, unspecified; E83.119 Hemochromatosis, unspecified
CPT/HCPCS: 36415; 36430; 71045-TC-FY; 74176-TC; 76775-TC; 80053; 81003; 82272; 82550; 82607; 82746; 83605; 83690; 83735; 84100; 84484; 85025; 85027; 85610; 85730; 86850; 86900; 86901; 86922; 87040; 87086; 93005; 93010; 99285-25; P9058

== ENCOUNTER 2024-12-12 16:46 | Inpatient (IN) | payer OTHER, BC ==
[2024-12-12] MEDS ORDERED: ONDANSETRON 4 MG/2 ML VIAL ONE ×2 (18:09→21:01)
[2024-12-12] MEDS: ONDANSETRON 4 MG/2 ML VIAL IVPUSH ONE ×2 (18:35→21:04)
[2024-12-12] MEDS: LACTATED RINGERS SOLUTION 1000 ML INFUS.BAG IV ONE (18:35)
[2024-12-12 18:40] LABS: HEMATOCRIT 39.5 % (35.4-49); HEMOGLOBIN 12.8 GM/dL (11.7-16.9); MCH 34.8 pg (25.7-33.7); MCHC 32.3 g/dl (32.0-35.9); MEAN CELL VOLUME 107.7 fl (80-96); MEAN PLT VOLUME 8.3 fl (7.5-11.1); PLATELET COUNT 314 10^3/uL (134-434); RBC 3.66 M/mm3 (4.00-5.60); RDW 16.8 % (11.9-15.9); WHITE BLOOD COUNT 20.9 K/mm3 (4.0-10.0)
[2024-12-12] MEDS ORDERED: FAMOTIDINE 20 MG/50 ML IVPB 20 MG/50 ML MG IVPB ONE (18:49)
[2024-12-12] MEDS ORDERED: PANTOPRAZOLE SODIUM 40 MG VIAL ONE (18:49)
[2024-12-12 18:53] LABS: INR 1.15 (0.83-1.09); PROTHROMBIN TIME (PATIENT) 12.5 SEC (9.7-13.0)
[2024-12-12 18:56] LABS: ACTIVATED PTT 28.9 SECONDS (25.2-36.5)
[2024-12-12 19:07] LABS: POTASSIUM 4.5 mmol/L (3.5-5.1)
[2024-12-12] MEDS: PANTOPRAZOLE SODIUM 40 MG VIAL IVPUSH ONE (19:08)
[2024-12-12] MEDS: FAMOTIDINE 20 MG/50 ML IVPB 20 MG/50 ML MG IVPB ONE (19:08)
[2024-12-12 19:10] LABS: ALBUMIN 4.2 g/dl (3.4-5.0); BLOOD UREA NITROGEN 45.4 mg/dL (7-18); CALCIUM 9.3 mg/dL (8.5-10.1)
[2024-12-12 19:13] LABS: CREATININE 2.8 mg/dL (0.55-1.3)
[2024-12-12 19:15] LABS: BILIRUBIN,TOTAL 0.9 mg/dL (0.2-1); TOT PROT 7.4 g/dl (6.4-8.2)
[2024-12-12 19:40] LABS: LACTIC ACID 2.8 mmol/L (0.4-2.0)
[2024-12-12] MEDS: IOHEXOL (OMNIPAQUE IV) 350 MG/ML - 100 ML BOTTLE PO ONE (20:52)
[2024-12-12 23:14] LABS: LACTIC ACID 2.1 mmol/L (0.4-2.0)
[2024-12-12] MEDS ORDERED: PIPERACILLIN/TAZOB 3.375 GM 3.375 GM in DEXTROSE 5%-WATER - 50 ML IVPB SCH (23:45)
[2024-12-12] MEDS ORDERED: VANCOMYCIN/WATER 1250 MG 1,250 MG/250 ML BAG IVPB SCH (23:45)
[2024-12-13] MEDS ORDERED: PIPERACILLIN/TAZOB 3.375 GM 3.375 GM/50 ML BAG IVPB ONE (00:46)
[2024-12-13] MEDS: PIPERACILLIN/TAZOB 3.375 GM 3.375 GM in DEXTROSE 5%-WATER - 50 ML IVPB SCH (02:15)
[2024-12-13] MEDS ORDERED: VANCOMYCIN 1 GM PREMIX (F) 1 GM/200 ML BAG ONE (02:21)
[2024-12-13] MEDS ORDERED: VANCOMYCIN/WATER 1250 MG 1,250 MG/250 ML BAG IVPB ONE (02:24)
[2024-12-13] MEDS: VANCOMYCIN/WATER 1250 MG 1,250 MG/250 ML BAG IVPB SCH (02:24)
[2024-12-13 02:26] LABS: VENOUS BASE EXCESS -12.3 mmol/L (-2-2); VENOUS O2 SATURATION 46.9 % (70-80); VENOUS PCO2 30.9 mmHg (38-52); VENOUS PH 7.258 (7.310-7.410)
[2024-12-13 02:37] LABS: EPI CELLS 26 /uL (0-25.1); HYALINE CASTS 8 /uL (0-3.1); URINE APPEARANCE CLOUDY; URINE BACTERIA 4 /uL (0-1359); URINE BILIRUBIN NEGATIVE (NEGATIVE); URINE COLOR YELLOW; URINE GLUCOSE (UA) NEGATIVE (NEGATIVE); URINE KETONE TRACE (NEGATIVE); URINE LEUK ESTERASE NEGATIVE (NEGATIVE); URINE NITRITE NEGATIVE (NEGATIVE); URINE PROTEIN 1+ (NEGATIVE); URINE UROBILINOGEN 0.2 mg/dL (0.2-1.0); URINE WBC 45 /uL (0-25.8)
[2024-12-13 03:00] LABS: ALBUMIN 3.7 g/dl (3.4-5.0); BLOOD UREA NITROGEN 47.3 mg/dL (7-18); CALCIUM 8.8 mg/dL (8.5-10.1)
[2024-12-13 03:03] LABS: CREATININE 3.1 mg/dL (0.55-1.3)
[2024-12-13 03:05] LABS: BILIRUBIN,TOTAL 0.7 mg/dL (0.2-1); TOT PROT 6.4 g/dl (6.4-8.2)
[2024-12-13 03:46] LABS: URINE RBC 159.5 /uL (0-23.9)
[2024-12-13 07:19] LABS: HEMATOCRIT 32.6 % (35.4-49); MCHC 33.8 g/dl (32.0-35.9); MEAN CELL VOLUME 106.5 fl (80-96); MEAN PLT VOLUME 8.1 fl (7.5-11.1); PLATELET COUNT 239 10^3/uL (134-434); RBC 3.07 M/mm3 (4.00-5.60); RDW 16.2 % (11.9-15.9); WHITE BLOOD COUNT 15.1 K/mm3 (4.0-10.0)
[2024-12-13 07:40] LABS: POTASSIUM 3.9 mmol/L (3.5-5.1)
[2024-12-13 07:51] LABS: ALBUMIN 3.4 g/dl (3.4-5.0); BLOOD UREA NITROGEN 42.9 mg/dL (7-18)
[2024-12-13 07:52] LABS: BILIRUBIN,TOTAL 0.7 mg/dL (0.2-1)
[2024-12-13 07:53] LABS: CALCIUM 8.6 mg/dL (8.5-10.1)
[2024-12-13] MEDS: LACTATED RINGERS SOLUTION 1,000 ML/1,000 ML INFUS.BAG IV SCH (10:00)
[2024-12-13 10:20] LABS: ERYTHROCYTE SEDIMENTATION RATE 52 mm/hr (0-20)
[2024-12-13] MEDS ORDERED: PANTOPRAZOLE 20 MG TABLET PO ONE (11:09)
[2024-12-13] MEDS ORDERED: LISINOPRIL 10 MG TABLET ONE (11:09)
[2024-12-13] MEDS ORDERED: CEFTRIAXONE 1 G/50 ML PREMIX 50 ML IVPB ONE (11:10)
[2024-12-13] MEDS: CEFTRIAXONE 1 G/50 ML PREMIX 50 ML IVPB SCH (11:46)
[2024-12-13] MEDS: LISINOPRIL 10 MG TABLET PO SCH (11:46)
[2024-12-13] MEDS: PANTOPRAZOLE 20 MG TABLET PO SCH (11:47)
[2024-12-13] MEDS: predniSONE 5 MG TABLET (UD) PO SCH (11:47)
[2024-12-13] MEDS: POTASSIUM CHLORIDE TABS 20 MEQ TABLET.ER (FP) PO SCH (16:00)
[2024-12-13] MEDS ORDERED: POTASSIUM CHLORIDE TABS 20 MEQ TABLET.ER (FP) PO ONE ×2 (17:40→22:38)
[2024-12-14] MEDS ORDERED: POTASSIUM CHLORIDE TABS 20 MEQ TABLET.ER (FP) PO ONE ×2 (06:04→14:27)
[2024-12-14 07:21] LABS: HEMATOCRIT 31.5 % (35.4-49); HEMOGLOBIN 10.4 GM/dL (11.7-16.9); MCH 35.1 pg (25.7-33.7); MCHC 32.9 g/dl (32.0-35.9); MEAN CELL VOLUME 106.7 fl (80-96); MEAN PLT VOLUME 8.6 fl (7.5-11.1); PLATELET COUNT 247 10^3/uL (134-434); RBC 2.95 M/mm3 (4.00-5.60); RDW 16.3 % (11.9-15.9); WHITE BLOOD COUNT 14.3 K/mm3 (4.0-10.0)
[2024-12-14 07:54] LABS: POTASSIUM 4.7 mmol/L (3.5-5.1)
[2024-12-14 08:14] LABS: CREATININE 2.8 mg/dL (0.55-1.3)
[2024-12-14 08:15] LABS: ALBUMIN 3.3 g/dl (3.4-5.0); BLOOD UREA NITROGEN 35.2 mg/dL (7-18)
[2024-12-14 08:16] LABS: BILIRUBIN,TOTAL 0.4 mg/dL (0.2-1); TOT PROT 5.9 g/dl (6.4-8.2)
[2024-12-14 08:32] LABS: CALCIUM 8.2 mg/dL (8.5-10.1); MAGNESIUM 1.2 mg/dL (1.8-2.4)
[2024-12-14] MEDS ORDERED: PANTOPRAZOLE 20 MG TABLET PO ONE (09:14)
[2024-12-14] MEDS ORDERED: LISINOPRIL 10 MG TABLET ONE (09:15)
[2024-12-14] MEDS ORDERED: CEFTRIAXONE 1 G/50 ML PREMIX 50 ML IVPB ONE (09:15)
[2024-12-14 09:22] LABS: ANISOCYTOSIS 0; MACROCYTOSIS 1+
[2024-12-15 08:03] LABS: HEMATOCRIT 25.1 % (35.4-49); HEMOGLOBIN 8.5 GM/dL (11.7-16.9); MCH 35.9 pg (25.7-33.7); MCHC 33.8 g/dl (32.0-35.9); MEAN CELL VOLUME 106.3 fl (80-96); MEAN PLT VOLUME 8.2 fl (7.5-11.1); PLATELET COUNT 224 10^3/uL (134-434); RBC 2.36 M/mm3 (4.00-5.60); RDW 16.2 % (11.9-15.9); WHITE BLOOD COUNT 10.2 K/mm3 (4.0-10.0)
[2024-12-15 08:14] LABS: POTASSIUM 4.5 mmol/L (3.5-5.1)
[2024-12-15 08:22] LABS: ALBUMIN 2.9 g/dl (3.4-5.0)
[2024-12-15 08:23] LABS: BLOOD UREA NITROGEN 22.3 mg/dL (7-18); CALCIUM 8.1 mg/dL (8.5-10.1)
[2024-12-15 08:24] LABS: TOT PROT 5.2 g/dl (6.4-8.2)
[2024-12-15 08:27] LABS: BILIRUBIN,TOTAL 0.5 mg/dL (0.2-1)
[2024-12-15 08:29] LABS: CREATININE 2.3 mg/dL (0.55-1.3)
[2024-12-15] MEDS: TAMSULOSIN HCL 0.4 MG CAP PO SCH (10:02)
[2024-12-15 12:29] LABS: ANISOCYTOSIS 1+; MACROCYTOSIS 2+
[2024-12-15 15:22] VITALS: BMI 17.2
[2024-12-15] MEDS: MAGNESIUM 2GM/50ML STERILE WATER IVPB IVPB ONE (15:48)
[2024-12-15] MEDS: LACTATED RINGERS SOLUTION 1,000 ML/1,000 ML INFUS.BAG IV SCH (16:11)
[2024-12-15] MEDS: MAGNESIUM 1GM/D5W 100ML - 100 ML IVPB IVPB ONE (23:26)
[2024-12-16 07:39] LABS: HEMATOCRIT 23.6 % (35.4-49); HEMOGLOBIN 8.1 GM/dL (11.7-16.9); MCHC 34.3 g/dl (32.0-35.9); MEAN CELL VOLUME 105.1 fl (80-96); MEAN PLT VOLUME 7.8 fl (7.5-11.1); PLATELET COUNT 212 10^3/uL (134-434); RBC 2.24 M/mm3 (4.00-5.60); RDW 16.3 % (11.9-15.9); WHITE BLOOD COUNT 10.7 K/mm3 (4.0-10.0)
[2024-12-16 07:56] LABS: POTASSIUM 3.9 mmol/L (3.5-5.1)
[2024-12-16 08:23] LABS: ALBUMIN 2.9 g/dl (3.4-5.0); CALCIUM 8.5 mg/dL (8.5-10.1)
[2024-12-16 08:26] LABS: CREATININE 1.9 mg/dL (0.55-1.3)
[2024-12-16 08:27] LABS: BILIRUBIN,TOTAL 0.4 mg/dL (0.2-1); TOT PROT 5.1 g/dl (6.4-8.2)
[2024-12-16] MEDS: NAPH,MB-DB/K PH,MBDB POWDER PACKET PO SCH (09:40)
[2024-12-16 11:21] LABS: ANISOCYTOSIS 0; MACROCYTOSIS 1+
[2024-12-16 13:46] VITALS: BP 142/67; PULSE 91; RESP 20; TEMP 98.2
== END 2024-12-16 16:50 | disposition home or self-care (01) | DRG 386 ==
LOC: JER 16:46 → JERBED 12-13 00:34 → OBSVTOIN 12-13 03:01 → J4W 12-14 20:13
PROVIDERS: ADMIT Student in an Organized Health Care Education/Training Program; ATTEND Internal Medicine
DX: K50.90 Crohn's disease, unspecified, without complications (principal); E87.20 Acidosis, unspecified; N17.9 Acute kidney failure, unspecified; Z68.1 Body mass index [BMI] 19.9 or less, adult; I12.9 Hypertensive chronic kidney disease with stage 1 through stage 4 chronic kidney disease, or unspecified chronic kidney disease; N18.9 Chronic kidney disease, unspecified; R74.01 Elevation of levels of liver transaminase levels; D64.9 Anemia, unspecified; K80.20 Calculus of gallbladder without cholecystitis without obstruction; E83.42 Hypomagnesemia; R63.0 Anorexia; E83.119 Hemochromatosis, unspecified; E87.6 Hypokalemia; D63.8 Anemia in other chronic diseases classified elsewhere
CPT/HCPCS: 0241U-QW; 36415; 71045-TC-FY; 74176-TC; 74181-TC; 76705-TC; 76775-TC; 76856-TC; 80053; 81003; 82010; 82550; 82570; 82607; 82746; 82803; 82977; 83605; 83690; 83735; 84100; 84300; 84484; 84540; 85025; 85027; 85610; 85651; 85730; 86140; 86704; 86708; 86803; 87086; 87340; 87517; 93005; 93010; 99285-25; G0378